=== PATIENT | female | born 1995 | race Caucasian/White ===

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

== ENCOUNTER 2021-09-04 02:12 | Emergency (ER) | payer BC ==
[~2021-09-04] VITALS: Ht 167.6 cm; Wt 54.5 kg
[2021-09-04 02:19] VITALS: TEMP 98.4
[2021-09-04 02:45] LABS: BASO % 0.3 % (0.0-2.0); EOS % 0.5 % (0.0-4.0); GRAN # 6.6 K/mm3 (1.4-6.5); GRAN % 77.1 % (42.2-75.2); HEMATOCRIT 39.9 % (37.0-47.0); LYMPH # 1.4 K/mm3 (1.2-3.4); LYMPH % 16.5 % (20.0-51.0); MEAN CELL VOLUME 92 fl (80.0-100.0); MEAN CORPUSCULAR HEMOGLOBIN 32 pg (27-31); MEAN CORPUSCULAR HGB CONC 35 g/dl (33.0-37.0); MEAN PLATELET VOLUME 9.8 fl (7.4-10.4); MONO # 0.5 K/mm3 (0.1-0.6); MONO % 5.4 % (1.7-9.3); PLATELET COUNT 296 K/mm3 (130-400); RED BLOOD COUNT 4.36 M/mm3 (4.10-5.30); REDCELL DISTRIBUTION WIDTH-CV 12.1 % (11.5-14.5)
[2021-09-04 03:04] LABS: ALANINE AMINOTRANSFERASE 16 U/L (0-55); ALBUMIN 4.5 gm/dL (3.5-5.0); ALKALINE PHOSPHATASE 26 U/L (40-150); ANION GAP 13 mmol/L (7-16); AST,SGOT 19 U/L (5-34); BILIRUBIN,TOTAL 0.7 mg/dL (0.2-1.2); BLOOD UREA NITROGEN 8 mg/dL (7-19); CALCIUM 9.8 mg/dL (8.4-10.2); CARBON DIOXIDE 21 mmol/L (22-29); CHLORIDE 102 mmol/L (98-107); CREATININE, serum 0.88 mg/dL (0.57-1.11); GLUCOSE 106 mg/dL (70-99); POTASSIUM 3.7 mmol/L (3.5-4.5); SODIUM 136 mmol/L (136-145); TOTAL PROTEIN 8.2 gm/dL (6.2-8.1)
[2021-09-04 03:06] LABS: TROPONIN-I < 0.010 ng/mL (0.00-0.033)
[2021-09-04 03:54] VITALS: BP 130/91; PULSE 87
== END 2021-09-04 03:54 | disposition home or self-care (01) ==
LOC: COL.ER 02:12
PROVIDERS: Emergency Medicine
DX: R00.2 Palpitations (principal); R00.0 Tachycardia, unspecified
CPT/HCPCS: J7030

== ENCOUNTER 2022-06-26 08:03 | Emergency (ER) | payer OTHER ==
[~2022-06-26] VITALS: Ht 167.6 cm; Wt 52.7 kg
[2022-06-26 08:07] VITALS: TEMP 98.1
[2022-06-26 10:03] LABS: BASO % 0.4 % (0.0-2.0); EOS # 0.1 K/mm3 (0.0-0.7); EOS % 1.3 % (0.0-4.0); GRAN # 6.8 K/mm3 (1.4-6.5); GRAN % 67.8 % (42.2-75.2); HEMATOCRIT 41.2 % (37.0-47.0); HEMOGLOBIN 14.5 g/dl (12.5-16.0); LYMPH % 19.8 % (20.0-51.0); MEAN CELL VOLUME 91 fl (80.0-100.0); MEAN CORPUSCULAR HEMOGLOBIN 32 pg (27-31); MEAN CORPUSCULAR HGB CONC 35 g/dl (33.0-37.0); MONO % 10.4 % (1.7-9.3); PLATELET COUNT 247 K/mm3 (130-400); RED BLOOD COUNT 4.55 M/mm3 (4.10-5.30); REDCELL DISTRIBUTION WIDTH-CV 12.1 % (11.5-14.5)
[2022-06-26 10:17] LABS: ALBUMIN 4.3 gm/dL (3.5-5.0); BILIRUBIN,TOTAL 0.8 mg/dL (0.2-1.2); CREATININE, serum 0.81 mg/dL (0.57-1.11); POTASSIUM 3.8 mmol/L (3.5-4.5); TOTAL PROTEIN 7.8 gm/dL (6.2-8.1)
[2022-06-26 10:30] LABS: TROPONIN-I 0.182 ng/mL (0.00-0.033)
[2022-06-26 14:00] VITALS: BP 127/88; PULSE 78
== END 2022-06-26 14:04 | disposition short-term general hospital (02) ==
LOC: COL.ER 08:03
PROVIDERS: Emergency Medicine
DX: R07.89 Other chest pain (principal); R77.8 Other specified abnormalities of plasma proteins; R06.02 Shortness of breath
CPT/HCPCS: J7030

== ENCOUNTER 2023-02-24 09:03 | Emergency (ER) | payer OTHER ==
[~2023-02-24] VITALS: Ht 167.6 cm; Wt 51.4 kg
[2023-02-24 09:09] VITALS: TEMP 98.6
[2023-02-24 09:25] LABS: BASO % 0.4 % (0.0-2.0); EOS # 0.1 K/mm3 (0.0-0.7); GRAN # 4.6 K/mm3 (1.4-6.5); HEMATOCRIT 44.9 % (37.0-47.0); HEMOGLOBIN 15.7 g/dl (12.5-16.0); LYMPH # 2.8 K/mm3 (1.2-3.4); LYMPH % 34.5 % (20.0-51.0); MEAN CELL VOLUME 91 fl (80.0-100.0); MEAN CORPUSCULAR HEMOGLOBIN 32 pg (27-31); MEAN CORPUSCULAR HGB CONC 35 g/dl (33.0-37.0); MONO # 0.6 K/mm3 (0.1-0.6); PLATELET COUNT 332 K/mm3 (130-400); RED BLOOD COUNT 4.93 M/mm3 (4.10-5.30)
[2023-02-24 09:41] LABS: ALANINE AMINOTRANSFERASE 89 U/L (0-55); ALKALINE PHOSPHATASE 31 U/L (40-150); ANION GAP 13 mmol/L (7-16); AST,SGOT 77 U/L (5-34); BILIRUBIN,TOTAL 0.9 mg/dL (0.2-1.2); BLOOD UREA NITROGEN 15 mg/dL (7-19); CALCIUM 10.5 mg/dL (8.4-10.2); CARBON DIOXIDE 22 mmol/L (22-29); CHLORIDE 102 mmol/L (98-107); CREATININE, serum 0.98 mg/dL (0.57-1.11); GLUCOSE 129 mg/dL (70-99); LIPASE 27 U/L (8-78); SODIUM 137 mmol/L (136-145); TOTAL PROTEIN 9.1 gm/dL (6.2-8.1)
[2023-02-24 09:47] LABS: TROPONIN-I < 0.010 ng/mL (0.00-0.033)
[2023-02-24 10:32] LABS: COLLECTION METHOD CLEAN CATCH
[2023-02-24 10:59] LABS: URINE APPEARANCE Clear (CLEAR/HAZY); URINE BLOOD Negative (NEGATIVE); URINE COLOR Yellow (YELLOW); URINE GLUCOSE Negative (NEGATIVE); URINE KETONE Negative (NEGATIVE); URINE NITRATE Negative (NEGATIVE); URINE PROTEIN(semi-quant) Negative (NEGATIVE); URINE UROBILINOGEN 0.2 E.U/dL (0.2-1.0)
[2023-02-24 11:00] LABS: SQUAMOUS EPITHELIAL 0-2 /hpf (0-10); URINE RBC 0-2 /hpf (0-2)
[2023-02-24 13:10] VITALS: BP 109/70; PULSE 63
== END 2023-02-24 13:21 | disposition home or self-care (01) ==
LOC: COL.ER 09:03
PROVIDERS: Emergency Medicine
DX: R07.89 Other chest pain (principal); I49.8 Other specified cardiac arrhythmias; Z79.899 Other long term (current) drug therapy